=== PATIENT | female | born 1970 | race Caucasian/White ===

== ENCOUNTER 2017-12-28 16:02 | Emergency (ER) | payer SELFPAY ==
[~2017-12-28] VITALS: Ht 172.7 cm; Wt 79.4 kg
[2017-12-28 16:12] VITALS: BP 110/77
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
[2017-12-28 18:28] VITALS: BP 117/82
[2017-12-28 20:00] VITALS: BP 119/85
[2017-12-28 20:31] VITALS: BP 119/85
== END 2017-12-28 20:31 | disposition home or self-care (01) ==
LOC: EDBD 16:02 → EMR 16:37
DX: F10.129 Alcohol abuse with intoxication, unspecified (principal)
CPT/HCPCS: 99284; J2405